=== PATIENT | female | born 1990 | race Caucasian/White ===

== ENCOUNTER 2017-11-20 13:41 | Emergency (ER) | payer BC ==
[2017-11-20 13:47] VITALS: BP 119/77; BMI 23.6
--- NOTE | 2017-11-20 13:52 | DR.GENAD ---
HPI - PCP Primary Care Physician: nfd - Complaint/Symptoms Chief Complaint Doctors Comments: Patient presents with a complaint of epigastric pain of two days duration. Pain not relieved by antacids. Denies a history of cardiopulmonary disease of reflux. She denies dysuria. She admits to cigarette use up until her pregnnacy. Chief Complaint:: pt stated that 2 days ago she started having epigastric pain that radiates to her mid back. - Source History Provided: Patient - Mode of Arrival Mode of Arrival: Ambulatory - Timing Onset of Chief Complaint: 11/18/17 PMH - PMH Past Medical History: No Past Surgical History: No - Family History History of Family Medical Conditions: Yes Family Medical History: Diabetes Mellitus, Cancer - Social History Does patient currently use any type of tobacco product: No Have you used tobacco products in the last 12 months: No Type of Tobacco Use: None Does any household member use tobacco: No Alcohol Use: None Do you use any recreational Drugs:: No Lives With: Family Lives Where: Home - infectious screening In the last 2 months have you had wt loss of >10#?: NO Have you had fever, night sweats or hemotysis?: No Have you traveled outside the country in the last 6 months?: No Isolation: Standard ROS - Review of Systems Eyes: No Symptoms Reported ENTM: No Symptoms Reported Respiratoy: No Symptoms Reported Cardiovascular: No Symptoms Reported Gastrointestinal/Abdominal: No Symptoms Reported Genitourinary: No Symptoms Reported Neurological: No Symptoms Reported Musculoskeletal: No Symptoms Reported Integumentary: No Symptoms Reported Hematologic/Lymphatic: No Symptoms Reported Endocrine: No Symptoms Reported Psychiatric: No Symptoms Reported All Other Systems: Reviewed and Negative PE - Vital Signs Vitals: Temperature 98.6 F Pulse Rate 95 Respiratory Rate 16 Blood Pressure 119/77 O2 Sat by Pulse Oximetry 98 - General Limitations: No Limitations General Appearance: Alert, In No Apparent Distress - Head Head Exam: Normal Inspection, Atraumatic - Eyes Eye exam: Normal Appearance, PERRL, EOMI - ENT ENT Exam: Normal Exam External Ear Exam: Normal External Inspection TM/Canal Exam: Bilateral Normal Nose Exam: Normal Nose Exam Mouth Exam: Normal Inspection Throat Exam: Normal Inspection - Neck Neck Exam: Normal Inspection, Full ROM - Chest Chest Inspection: Normal Inspection - Respiratory Respiratory Exam: Normal Lung Sounds Bilat Respiratory Exam: Bilateral Clear to Auscultation - Cardiovascular Cardiovascular Exam: Regular Rate, Normal Rhythm - Abdominal Exam Abdominal Exam: Normal Inspection, Normal Bowel Sounds Abdominal Tenderness: negative: RUQ, RLQ, LUQ, LLQ, Epigastrium, Suprapubic, Diffuse, Mild, Moderate, Severe, Other - Extremities Extremities Exam: Normal Inspection, Full ROM - Back Back Exam: Normal Inspection, Full ROM - Neurologic Neurological Exam: Alert, Oriented X3, CN II-XII Intact - Psychiatric Psychiatric Exam: Normal Affect, Normal Mood - Skin Skin Exam: Warm, Dry Course - Reevaluation 1st: Unchanged ROR - Labs Reviewed Result Diagrams: 11/20/17 14:10 Laboratory: WBC 6.6 X10^3/uL (3.6-10.0) 11/20/17 14:10 RBC 4.37 X10^6/uL (3.5-5.4) 11/20/17 14:10 Hgb 12.6 g/dL (12.0-16.0) 11/20/17 14:10 Hct 36.2 % (36.0-47.0) 11/20/17 14:10 MCV 82.9 fL (80.0-100.0) 11/20/17 14:10 MCH 28.8 pg (27.0-34.0) 11/20/17 14:10 MCHC 34.7 g/dL (33.0-35.0) 11/20/17 14:10 RDW 13.8 % (11.6-16.5) 11/20/17 14:10 Plt Count 215 X10^3/uL (150.0-450.0) 11/20/17 14:10 MPV 8.8 fL (7.4-11.0) 11/20/17 14:10 Neut % (Auto) 79.5 % (42.0-75.0) H 11/20/17 14:10 Lymph % (Auto) 13.7 % (21.0-51.0) L 11/20/17 14:10 Bowie % (Auto) 5.6 % (0.0-13.0) 11/20/17 14:10 Eos % (Auto) 0.9 % (0.9-2.9) 11/20/17 14:10 Baso % (Auto) 0.3 % (0.2-1.0) 11/20/17 14:10 Neut # (Auto) 5.2 x10^3/uL (2.2-4.8) H 11/20/17 14:10 Lymph # (Auto) 0.9 X10^3/uL (1.3-2.9) L 11/20/17 14:10 Bowie # (Auto) 0.4 x10^3/uL (0.3-0.8) 11/20/17 14:10 Eos # (Auto) 0.1 x10^3/uL (0.0-0.2) 11/20/17 14:10 Baso # (Auto) 0.0 X10^3/uL (0.0-0.1) 11/20/17 14:10 Absolute Nucleated RBC 0.0 /100WBC 11/20/17 14:10 C-Reactive Protein 2.60 mg/L (0-3.0) 11/20/17 14:10 Lipase 157 Units/L (73-393) 11/20/17 14:10 Specimen Type Clean catch urine 11/20/17 14:20 Urine Color Yellow (YELLOW) 11/20/17 14:20 Urine Appearance Clear (CLEAR) 11/20/17 14:20 Urine pH 7.0 (5.0 - 8.0) 11/20/17 14:20 Ur Specific Hardin 1.005 (1.000-1.030) 11/20/17 14:20 Urine Protein Negative (NEGATIVE) 11/20/17 14:20 Urine Glucose (UA) Negative (NEGATIVE) 11/20/17 14:20 Urine Ketones Negative (NEGATIVE) 11/20/17 14:20 Urine Occult Blood 4+ (NEGATIVE) 11/20/17 14:20 Urine Nitrite Negative (NEGATIVE) 11/20/17 14:20 Urine Bilirubin Negative (NEGATIVE) 11/20/17 14:20 Urine Urobilinogen Normal (NORMAL) 11/20/17 14:20 Ur Leukocyte Esterase Negative (NEGATIVE) 11/20/17 14:20 Urine RBC 3-5 /HPF (NONE SEEN) 11/20/17 14:20 Urine WBC 0-2 /HPF (NONE SEEN) 11/20/17 14:20 Ur Squamous Epith Cells Rare /HPF (NEGATIVE) 11/20/17 14:20 Urine Bacteria Negative /HPF (NEGATIVE) 11/20/17 14:20 Ur Culture Indicated? No/not indicated 11/20/17 14:20 H. pylori IgG Antibody Negative (NEGATIVE) 11/20/17 14:10 - XRAY XRAY Interpreted by: Radiologist (Acute Abdo: No acute cardiopulmonary disease, no abdominal pathology) - Diagnosis Discharge Problem: Epigastric abdominal pain - Discharge Plan Condition: Stable - Follow ups/Referrals Follow ups/Referrals: N[facility],None [Primary Care Provider] - 3 days - Instructions
[2017-11-20 14:16] LABS: BASOPHILS % (AUTO) 0.3 % (0.2-1.0); EOSINOPHILS # (AUTO) 0.1 x10^3/uL (0.0-0.2); EOSINOPHILS % (AUTO) 0.9 % (0.9-2.9); HEMATOCRIT 36.2 % (36.0-47.0); HEMOGLOBIN 12.6 g/dL (12.0-16.0); LYMPHOCYTES # (AUTO) 0.9 X10^3/uL (1.3-2.9); LYMPHOCYTES % (AUTO) 13.7 % (21.0-51.0); MEAN CORPUSCULAR HEMOGLOBIN 28.8 pg (27.0-34.0); MEAN CORPUSCULAR HGB CONC 34.7 g/dL (33.0-35.0); MEAN CORPUSCULAR VOLUME 82.9 fL (80.0-100.0); MEAN PLATELET VOLUME 8.8 fL (7.4-11.0); MONOCYTES # (AUTO) 0.4 x10^3/uL (0.3-0.8); MONOCYTES % (AUTO) 5.6 % (0.0-13.0); NEUTROPHILS # (AUTO) 5.2 x10^3/uL (2.2-4.8); NEUTROPHILS % (AUTO) 79.5 % (42.0-75.0); PLATELET COUNT 215 X10^3/uL (150.0-450.0); RED BLOOD COUNT 4.37 X10^6/uL (3.5-5.4); RED CELL DISTRIBUTION WIDTH 13.8 % (11.6-16.5); WHITE BLOOD COUNT 6.6 X10^3/uL (3.6-10.0)
--- NOTE | 2017-11-20 14:21 | RAD ---
HISTORY: Chest and abdominal pain. Acute abdominal series. Findings: The trachea is midline. The cardiac silhouette is unremarkable. The lungs are clear without focal i nfiltrate or effusion. The bony thorax demonstrates biconvex scoliosis. Flat plate and upright evaluation of the abdomen demonstrates a nonspecific and nonobstructive bowel gas pattern. No free peritoneal air is seen. No pathological soft tissue abdominal mass effect or foc al calcification can be observed. The bony structures are grossly intact. IMPRESSION: 1. No acute cardiopulmonary disease. 2. No evidence for acute abdominal pathology. Reported By:
[2017-11-20 14:23] LABS: C-REACTIVE PROTEIN 2.6 mg/L (0-3.0)
[2017-11-20 14:59] LABS: BILIRUBIN,URINE NEGATIVE (NEGATIVE); BLOOD/HEMOGLOBIN,URINE 4+ (NEGATIVE); GLUCOSE, URINE NEGATIVE (NEGATIVE); KETONES,URINE NEGATIVE (NEGATIVE); LEUKOCYTE ESTERASE ,URINE NEGATIVE (NEGATIVE); NITRITES,URINE NEGATIVE (NEGATIVE); PROTEIN,URINE NEGATIVE (NEGATIVE); UROBILINOGEN,URINE NORMAL (NORMAL)
[2017-11-20 15:08] LABS: APPEARANCE,URINE CLEAR (CLEAR); COLOR,URINE YELLOW (YELLOW)
[2017-11-20 15:09] LABS: BACTERIA,URINE NEGATIVE /HPF (NEGATIVE); SQUAMOUS EPITHELIAL CELL,UR RARE /HPF (NEGATIVE)
== END 2017-11-20 15:35 | disposition home or self-care (01) | DRG 392 ==
LOC: ER 13:56
DX: R10.13 Epigastric pain (principal); M54.89 Other dorsalgia; K21.9 Gastro-esophageal reflux disease without esophagitis
CPT/HCPCS: 36415; 74022; 81001; 83690; 85025; 86140; 86677; 99282